=== PATIENT | male | born 1990 | race African-American/Black ===

== ENCOUNTER 2020-05-28 02:19 | Emergency (ER) | payer SELFPAY | END 2020-05-28 03:25 | disposition home or self-care (01) | LOC: MADERS 02:19 | DX: G89.29 Other chronic pain (principal); M79.605 Pain in left leg; Z79.891 Long term (current) use of opiate analgesic; Z79.899 Other long term (current) drug therapy | CPT/HCPCS: 99283 ==

== ENCOUNTER 2020-08-05 13:11 | Emergency (ER) | payer SELFPAY | END 2020-08-05 14:43 | LOC: MADERS 13:11 | DX: M25.562 Pain in left knee (principal) | CPT/HCPCS: 99281 ==

== ENCOUNTER 2022-03-24 20:25 | Emergency (ER) | payer OTHER, SELFPAY ==
[2022-03-24 21:36] LABS: #Basophils 0.1 thou/uL (0.0-0.2); #Eosinphils 0.2 thou/uL (0.0-0.7); #Lymphocytes 2.7 thou/uL (1.20-3.40); #Monocytes 0.9 thou/uL (0.11-0.59); %Basophils 0.7 % (0.0-1.0); %Eosinophils 2.2 % (0.0-10.0); %Lymphocytes 34.6 % (21.0-51.0); %Monocytes 11.6 % (0.0-10.0); %Neutrophils 50.9 % (42.0-75.0); Hemoglobin 13.9 g/dL (14.0-18.0); Mean Corpuscular HGB CONC 30.6 g/dL (32.0-36.0); Mean Corpuscular Hemoglobin 25.2 pg (27.0-31.0); Mean Corpuscular Volume 82.4 fL (78.0-98.0); Mean Platelet Volume 7.5 fL (7.4-10.4); Platelet Count 314 thou/uL (130-400); RBC Distribution Width 13.2 % (11.5-14.5); Red Blood Cell (RBC) Count 5.49 mill/uL (4.70-6.10); White Blood Cell (WBC) Count 7.9 thou/uL (4.8-10.8)
[2022-03-24 21:46] LABS: INR-International Normal Ratio 2.5; Prothrombin Time 27.9 sec (12.0-14.7)
[2022-03-24 21:48] LABS: D-Dimer Test 0.27 *mcg/mL (0.27-0.43)
[2022-03-24 21:56] LABS: ALT (SGPT) 51 U/L (8-55); AST (SGOT) 26 U/L (5-34); Albumin 4.2 g/dL (3.5-5.0); Alkaline Phosphatase 95 U/L (40-110); Anion Gap 14 mmol/L (10-20); BUN (Urea Nitrogen) 11 mg/dL (8.9-20.6); Bilirubin, Total 0.5 mg/dL (0.2-1.2); CK (CPK) 227 U/L (30-200); Calc. Creatinine Clearance 0 mL/min (70-130); Calcium 9.5 mg/dL (7.8-10.44); Carbon Dioxide 25 mmol/L (22-29); Chloride 103 mmol/L (98-107); Estimated GFR 116; Globulin 3.8 g/dL (2.4-3.5); Glucose 106 mg/dL (70-105); Potassium 4.2 mmol/L (3.5-5.1); Sodium 138 mmol/L (136-145)
[2022-03-24] MEDS ORDERED: traMADol HCl 50 MG TAB ONE (22:11)
[2022-03-24] MEDS ORDERED: Furosemide 40 MG TAB ONE (22:12)
== END 2022-03-24 22:31 ==
LOC: MADERS 20:25
DX: I87.2 Venous insufficiency (chronic) (peripheral) (principal); M79.89 Other specified soft tissue disorders; F17.200 Nicotine dependence, unspecified, uncomplicated; Z86.718 Personal history of other venous thrombosis and embolism
CPT/HCPCS: 36415; 80053; 82550; 85025; 85379; 85610; 99283

== ENCOUNTER 2022-04-07 20:34 | Emergency (ER) | payer OTHER ==
[2022-04-07] MEDS ORDERED: Acetaminophen 500 MG TAB ONE (20:56)
== END 2022-04-07 23:06 ==
LOC: MADERS 20:34 → EEVIPCON 20:34 → MADERS 23:06
DX: S53.402A Unspecified sprain of left elbow, initial encounter (principal); F17.210 Nicotine dependence, cigarettes, uncomplicated; W17.89XA Other fall from one level to another, initial encounter; Y92.149 Unspecified place in prison as the place of occurrence of the external cause

== ENCOUNTER 2022-08-08 23:47 | Emergency (ER) | payer OTHER ==
[2022-08-09 00:10] LABS: #Basophils 0.1 thou/uL (0.0-0.2); #Eosinphils 0.2 thou/uL (0.0-0.7); #Lymphocytes 3.3 thou/uL (1.20-3.40); #Monocytes 0.7 thou/uL (0.11-0.59); #Neutrophils 3.8 thou/uL (1.40-6.50); %Basophils 1.5 % (0.0-1.0); %Eosinophils 2.2 % (0.0-10.0); %Lymphocytes 40.3 % (21.0-51.0); %Monocytes 8.8 % (0.0-10.0); %Neutrophils 47.3 % (42.0-75.0); Hemoglobin 13.3 g/dL (14.0-18.0); Mean Corpuscular HGB CONC 31.6 g/dL (32.0-36.0); Mean Corpuscular Hemoglobin 25.9 pg (27.0-31.0); Mean Corpuscular Volume 81.9 fl (78.0-98.0); Mean Platelet Volume 6.6 fL (7.4-10.4); Platelet Count 368 10x3/uL (130-400); RBC Distribution Width 12.6 % (11.5-14.5); Red Blood Cell (RBC) Count 5.15 mill/uL (4.70-6.10); White Blood Cell (WBC) Count 8.1 10x3/uL (4.8-10.8)
[2022-08-09 00:17] LABS: INR-International Normal Ratio 2.7; Prothrombin Time 30.3 sec (12.0-14.7)
[2022-08-09 00:18] LABS: PTT 50.1 sec (22.9-36.1)
[2022-08-09 00:20] LABS: D-Dimer Test 0.27 *mcg/mL (0.27-0.43)
[2022-08-09 00:24] LABS: Anion Gap 18 mmol/L (10-20); BUN (Urea Nitrogen) 12 mg/dL (8.9-20.6); Calc. Creatinine Clearance 0 mL/min (70-130); Calcium 9.4 mg/dL (7.8-10.44); Carbon Dioxide 24 mmol/L (22-29); Chloride 104 mmol/L (98-107); Estimated GFR 97; Glucose 93 mg/dL (70-105); Potassium 4.5 mmol/L (3.5-5.1); Sodium 141 mmol/L (136-145)
[2022-08-09] MEDS ORDERED: Ibuprofen 800 MG TAB ONE (00:38)
== END 2022-08-09 00:46 ==
LOC: EEVIPCON 23:47 → MADERS 23:47
DX: R22.42 Localized swelling, mass and lump, left lower limb (principal); Z79.01 Long term (current) use of anticoagulants
CPT/HCPCS: 36415; 80048; 85025; 85379; 85610; 85730; 99283

== ENCOUNTER 2022-08-23 17:26 | Emergency (ER) | payer OTHER ==
[~2022-08-23 17:26] MED LIST: Iopamidol 370 76% 125 ML VIAL FS ONE
[2022-08-23 18:06] LABS: #Basophils 0.1 thou/uL (0.0-0.2); #Eosinphils 0.1 thou/uL (0.0-0.7); #Lymphocytes 2.8 thou/uL (1.20-3.40); #Monocytes 0.7 thou/uL (0.11-0.59); #Neutrophils 3.4 thou/uL (1.40-6.50); %Basophils 1.8 % (0.0-1.0); %Eosinophils 1.6 % (0.0-10.0); %Lymphocytes 39.4 % (21.0-51.0); %Monocytes 9.5 % (0.0-10.0); %Neutrophils 47.7 % (42.0-75.0); Hemoglobin 13.1 g/dL (14.0-18.0); Mean Corpuscular HGB CONC 30.9 g/dL (32.0-36.0); Mean Corpuscular Hemoglobin 25.3 pg (27.0-31.0); Mean Corpuscular Volume 81.8 fl (78.0-98.0); Mean Platelet Volume 6.3 fL (7.4-10.4); Platelet Count 359 10x3/uL (130-400); RBC Distribution Width 12.7 % (11.5-14.5); Red Blood Cell (RBC) Count 5.18 mill/uL (4.70-6.10)
[2022-08-23 18:11] LABS: INR-International Normal Ratio 1.3; PTT 30.5 sec (22.9-36.1); Prothrombin Time 16.5 sec (12.0-14.7)
[2022-08-23 18:16] LABS: Anion Gap 15 mmol/L (10-20); BUN (Urea Nitrogen) 10 mg/dL (8.9-20.6); Calc. Creatinine Clearance 0 mL/min (70-130); Calcium 9.6 mg/dL (7.8-10.44); Carbon Dioxide 26 mmol/L (22-29); Chloride 103 mmol/L (98-107); Estimated GFR 100; Glucose 93 mg/dL (70-105); Potassium 4.8 mmol/L (3.5-5.1); Sodium 139 mmol/L (136-145)
[2022-08-23] MEDS ORDERED: Ondansetron PF 4 MG/2 ML Vial ONE (19:00)
[2022-08-23] MEDS ORDERED: Morphine 4 MG/ML VIAL ONE (19:02)
== END 2022-08-23 20:28 | disposition short-term general hospital (02) ==
LOC: MADERS 17:26
DX: M79.89 Other specified soft tissue disorders (principal); R79.1 Abnormal coagulation profile
CPT/HCPCS: 36415; 71275; 80048; 83880; 84484; 85025; 85610; 85730; 96372; 96374; 96375; J1650; J2270; J2405; Q9967